=== PATIENT | male | born 1955 | race Caucasian/White ===

== ENCOUNTER → 2023-09-05 | Outpatient (CLI) | payer MEDICARE, BC ==
[~2023-09-05] MED LIST: ANDR1.62 TOP; CATAPLEX B PO; CLOM50TA28; CYRUTA PLUS PO; DEXA4TA PO; FINA5TAB2; LEVO88TA3; MILK87.5 PO; ONDA-84 PO; PEPC1TAB5 PO; PROBCAP14 PO; TERA5CAP3; VITAMIN D; [UNRECOGNIZED DRUG - OTHER]; [UNRECOGNIZED DRUG - OTHER]; [UNRECOGNIZED DRUG - OTHER]; [UNRECOGNIZED DRUG - OTHER] PO; drenamin PO; immuplex PO
== END ==
LOC: M RAD 10:41
PROVIDERS: ATTEND Internal Medicine Hematology & Oncology
DX: C45.9 Mesothelioma, unspecified (principal)

== ENCOUNTER 2024-12-18 10:33 | Emergency (ER) | payer MEDICARE, BC ==
[~2024-12-18] VITALS: Ht 188 cm; Wt 98.9 kg
[~2024-12-18 10:33] MED LIST changes: -ANDR1.62 TOP; -CLOM50TA28; +CLOM50TA28 PO; -FINA5TAB2; +FINA5TAB2 PO; -LEVO88TA3; +LEVO88TA3 PO; -TERA5CAP3; +TERA5CAP3 PO; +TEST75GE10 TOP; -[UNRECOGNIZED DRUG - OTHER]; +[UNRECOGNIZED DRUG - OTHER] PO
[2024-12-18] MEDS ORDERED: NEUL0.6I SC (13:08)
[2024-12-18] MEDS ORDERED: HOME MED LIST COMPLETE! XX SCH (13:10)
[2024-12-18] MEDS: ceFAZolin SODIUM 2 GM in DEXTROSE 5% (D5W) ADV/MINI-BAG 50 ML IV ONE (14:10)
[2024-12-18] MEDS: NS (Normal Saline) 0.9% 1,000 ML IV SCH (14:11)
[2024-12-18] MEDS: MIDAZOLAM INJ 2 MG/2 ML VIAL IV PRN (14:20)
[2024-12-18] MEDS: LIDOCAINE 1% MDV 20 ML VIAL SC SCH (14:32)
[2024-12-18] MEDS: ISOVUE-300 61% 100 ML VIAL IV STA (14:36)
[2024-12-18 16:26] VITALS: BP 117/59; TEMP 98.6; O2SAT 99
== END 2024-12-18 16:46 | disposition home or self-care (01) ==
LOC: M ED 10:33
DX: T82.598A Other mechanical complication of other cardiac and vascular devices and implants, initial encounter (principal); J91.0 Malignant pleural effusion; C45.9 Mesothelioma, unspecified; K21.9 Gastro-esophageal reflux disease without esophagitis; N40.0 Benign prostatic hyperplasia without lower urinary tract symptoms; Z88.1 Allergy status to other antibiotic agents; Z88.5 Allergy status to narcotic agent; Z88.6 Allergy status to analgesic agent; Z91.040 Latex allergy status; Z79.899 Other long term (current) drug therapy
CPT/HCPCS: 32555; 36581; 36590; 71045; 71046; 87486; 87581; 87633; 87798; 93041; 94760; 96372; 96374; 96375; 99152; 99153; 99285; C1729; J0688; J1642; J2250; J3010; Q9967

== ENCOUNTER → 2025-01-09 | Outpatient (CLI) | payer MEDICARE, BC ==
[~2025-01-09] MED LIST changes: +ISOVUE-370 76% 100 ML VIAL As Ordered ONE; +NEUL0.6I SC; +SODIUM CHLORIDE 0.9% INJ 10 ML SYR IV SCH
[2025-01-09 11:20] VITALS: TEMP 98
[2025-01-09 13:03] LABS: APPEARANCE, BODY FLUID CLOTTED (CLEAR); PLEURAL FL COLOR RED (COLORLESS); SOURCE, BODY FLUID PLEURAL
[2025-01-09 13:15] LABS: SOURCE, BODY FLUID pH PLEURAL
[2025-01-09] MEDS: LIDOCAINE 1% MDV 20 ML VIAL SC SCH (15:08)
[2025-01-09] MEDS: MIDAZOLAM INJ 2 MG/2 ML VIAL IV PRN (15:10)
[2025-01-09] MEDS: NS (Normal Saline) 0.9% 1,000 ML IV SCH (15:10)
[2025-01-09 16:25] VITALS: BP 152/84; O2SAT 99
[2025-01-09] MEDS: HEPARIN LOCK FLUSH 100 UNITS/ML 3 ML SYRINGE IV SCH (16:28)
== END ==
LOC: M IRPRO 11:04
PROVIDERS: ATTEND Internal Medicine Hematology & Oncology
DX: C45.1 Mesothelioma of peritoneum (principal); J98.11 Atelectasis; J90 Pleural effusion, not elsewhere classified
CPT/HCPCS: 32555; 71260; 82042; 82150; 82565; 82945; 83615; 83986; 84157; J1642; J2250; J3010; Q9967

== ENCOUNTER → 2025-01-20 | Outpatient (CLI) | payer MEDICARE, BC ==
[~2025-01-20] VITALS: Ht 188 cm; Wt 97.7 kg
[~2025-01-20] MED LIST changes: +HEPARIN LOCK FLUSH 100 UNITS/ML 3 ML SYRINGE IV PRN; -ISOVUE-370 76% 100 ML VIAL As Ordered ONE; -SODIUM CHLORIDE 0.9% INJ 10 ML SYR IV SCH; +[UNRECOGNIZED DRUG - OTHER] PO
[2025-01-20 13:42] VITALS: TEMP 98.4
[2025-01-20] MEDS: NS (Normal Saline) 0.9% 1,000 ML IV SCH (14:43)
[2025-01-20] MEDS: ceFAZolin SODIUM 2 GM in DEXTROSE 5% (D5W) ADV/MINI-BAG 50 ML IV ONE (14:43)
[2025-01-20] MEDS: MIDAZOLAM INJ 2 MG/2 ML VIAL IV PRN (14:43)
[2025-01-20] MEDS: SODIUM CHLORIDE 0.9% 1000 ML XX SCH (14:43)
[2025-01-20] MEDS: LIDOCAINE 1% MDV 20 ML VIAL SC SCH (15:05)
[2025-01-20 16:00] VITALS: BP 137/80; O2SAT 99
== END ==
LOC: M IRPRO 13:21
PROVIDERS: ATTEND Internal Medicine Hematology & Oncology
DX: C45.0 Mesothelioma of pleura (principal); J90 Pleural effusion, not elsewhere classified
CPT/HCPCS: 32550; 75989; 99152; 99153; J0688; J2250; J3010

== ENCOUNTER → 2025-02-18 | Outpatient (POV) | payer MEDICARE, BC ==
[~2025-02-18] MED LIST changes: +FINA-37 PO; -FINA5TAB2 PO; -HEPARIN LOCK FLUSH 100 UNITS/ML 3 ML SYRINGE IV PRN
== END ==
LOC: M IRPOV 14:00
PROVIDERS: ATTEND Radiology Diagnostic Radiology
DX: T85.79XA Infection and inflammatory reaction due to other internal prosthetic devices, implants and grafts, initial encounter (principal); Z82.49 Family history of ischemic heart disease and other diseases of the circulatory system; Z80.1 Family history of malignant neoplasm of trachea, bronchus and lung; Z79.899 Other long term (current) drug therapy; Z88.1 Allergy status to other antibiotic agents; Z88.5 Allergy status to narcotic agent; Z88.8 Allergy status to other drugs, medicaments and biological substances; Z91.040 Latex allergy status

== ENCOUNTER → 2025-02-18 | Outpatient (REF) | payer MEDICARE, BC ==
[~2025-02-18] MED LIST changes: -FINA-37 PO; +FINA5TAB2 PO
== END ==
LOC: M LAB REF 14:49
PROVIDERS: ATTEND Radiology Diagnostic Radiology
DX: L08.9 Local infection of the skin and subcutaneous tissue, unspecified (principal)
CPT/HCPCS: 87070; 87077; 87186; 87205; G0463